=== PATIENT | male | born 1970 | race Hispanic/Latino ===

== ENCOUNTER 2023-12-25 15:05 | Emergency (ER) | payer OTHER ==
[~2023-12-25] VITALS: Ht 180.3 cm; Wt 83.9 kg
[2023-12-25 16:00] VITALS: PULSE 85; RESP 16; TEMP 98.4; O2SAT 100
[2023-12-25] MEDS ORDERED: NASONEX 24HR AL17 ML (17:29)
== END 2023-12-25 17:35 | disposition home or self-care (01) ==
LOC: ER 15:40
DX: R05.9 Cough, unspecified (principal); U07.1 COVID-19
CPT/HCPCS: 87400; 99282; U0002